=== PATIENT | female | born 1975 | race Two or more races ===

== ENCOUNTER 2020-11-15 20:37 | Emergency (ER) | payer MEDICAID ==
[~2020-11-15] VITALS: Ht 160 cm; Wt 70.3 kg
[~2020-11-15 20:37] MED LIST: NKM; NORCO 5-325 TA1 EACH ORAL; PHENERGAN25 M1 ORAL
[2020-11-15 20:45] VITALS: BP 145/94
[2020-11-15] MEDS ORDERED: Lidocaine 2% Visc 15ml soln ORAL ONE (20:45)
[2020-11-15] MEDS ORDERED: Mylanta II UD 30ml ORAL ONE (20:45)
[2020-11-15] MEDS ORDERED: Dicyclomine HCl 10mg/5ml oral soln ORAL ONE (20:45)
--- NOTE | 2020-11-15 20:56 | Emergency Room Report ---
History of Present Illness General Chief Complaint: Abdominal Pain Present Illness HPI 45-year-old female with history of hypertension and gallstones here with right upper quadrant abdominal pain. Patient says that she gets abdominal pain on and off but it has become much worse over the past 4 days. It is constant, located in the right upper quadrant and epigastric region, does not otherwise radiate. Has felt nauseous during that time but has not vomited. No diarrhea. Pain is sharp in nature. Has only been taking omeprazole for the pain. Denies head ache, vision change, fevers, chills, chest pain, palpitation, shortness of breath, back pain, other abdominal pain, diarrhea, dysuria, hematuria. 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 (Flip Mccracken M.D.) Patient History Now: No (Flip Mccracken M.D.) Review of Systems All Other Systems: negative except mentioned in HPI (Flip Mccracken M.D.) Physical Exam Vital Signs Date Time Temp Pulse Resp B/P (MAP) Pulse Ox O2 Delivery O2 Flow Rate FiO2 11/15/20 20:45 98.6 84 18 145/94 (111) 100 Room Air Sp02 EP Interpretation: reviewed, normal General Appearance: no apparent distress, alert, non-toxic Head: normocephalic, atraumatic Eyes: bilateral eye normal inspection, bilateral eye PERRL ENT: hearing grossly normal, normal pharynx, no angioedema, normal voice Neck: full range of motion, supple/symm/no masses Respiratory: chest non-tender, lungs clear, normal breath sounds, speaking full sentences Cardiovascular #1: regular rate, rhythm, no edema Cardiovascular #2: 2+ carotid (R), 2+ carotid (L), 2+ radial (R), 2+ radial (L), 2+ dorsalis pedis (R), 2+ dorsalis pedis (L) Gastrointestinal: normal bowel sounds, soft, non-distended, no guarding, no rebound, other - Positive Bingham sign. Right upper quadrant tenderness on palpation. No distention or rebound or guarding Rectal: deferred Genitourinary: normal inspection, no CVA tenderness Musculoskeletal: back normal, normal range of motion, gait/station normal, non- tender Neurologic: alert, motor strength/tone normal, oriented x3, sensory intact, responsive, speech normal Psychiatric: judgement/insight normal, memory normal, mood/affect normal, no suicidal/homicidal ideation Lymphatic: no adenopathy (Flip Mccracken M.D.) Medical Decision Making Diagnostic Impression: Primary Impression: Abdominal pain Qualified Codes: R10.11 - Right upper quadrant pain Additional Impression: Anemia Qualified Codes: D64.9 - Anemia, unspecified ER Course See above note. Patient is improved after treatment. Ultrasound results: see below. Patient reports pain now 5/10. Abdomen soft. No guarding. Discussed results with patient and treatment plan. Patient stable for outpatient observation and treatment. (Aniket Lombardo MD) CT/MRI/US Diagnostic Results CT/MRI/US Diagnostic Results : Imaging Test Ordered: ultrasound Impression Technically limited study secondary to obscuring overlying bowel gas. And seen on the CT, the gallbladder is filled with shadowing stones. The gallbladder wall is not well visualized. No definite pericholecystic free fluid. Sonographic Bingham's sign reported as negative. Normal caliber common bile duct. (Aniket Lombardo MD) Last Vital Signs Date Time Temp Pulse Resp B/P (MAP) Pulse Ox O2 Delivery O2 Flow Rate FiO2 11/15/20 20:45 98.6 84 18 145/94 (111) 100 Room Air (Flip Mccracken M.D.) Last Vital Signs Date Time Temp Pulse Resp B/P (MAP) Pulse Ox O2 Delivery O2 Flow Rate FiO2 11/15/20 22:27 Room Air 11/15/20 20:45 98.6 84 18 145/94 (111) 100 Status: improved (Aniket Lombardo MD) Disposition: HOME, SELF-CARE Condition: Improved Scripts Hydrocodone/Acetaminophen 5-325* (HYDROCODONE/ACETAMINOPHEN 5-325*) 1 Each Tablet 1 TAB ORAL Q6H PRN for For Pain, #10 TAB 0 Refills Prov: Aniket Lombardo MD 11/15/20 Omeprazole (OMEPRAZOLE) 20 Mg Capsule.dr 20 MG ORAL DAILY for Gerd, #30 CAP Prov: Aniket Lombardo MD 11/15/20 Referrals: NOT CHOSEN IPA/,REFERRING (PCP) Flip Mccracken M.D. Nov 15, 2020 20:56 Aniket Lombardo MD Nov 15, 2020 21:42
[2020-11-15] MEDS ORDERED: Ketorolac 30mg Inj IV ONE (21:00)
[2020-11-15 21:14] LABS: APPEARANCE,URINE SLIGHTLY CLOUDY; BILIRUBIN, URINE NEGATIVE (NEGATIVE); COLOR,URINE PALE YELLOW; GLUCOSE, URINE (UA) NEGATIVE (NEGATIVE); KETONES,URINE NEGATIVE (NEGATIVE); LEUKOCYTE ESTERASE ,URINE 1+ (NEGATIVE); NITRITE,URINE NEGATIVE (NEGATIVE); PH,URINE 5 (4.5-8.0); PROTEIN,URINE 1+ (NEGATIVE); UROBILINOGEN,URINE NORMAL MG/DL (0.0-1.0)
[2020-11-15 21:21] LABS: ANION GAP 10 mmol/L (5-15); BLOOD UREA NITROGEN 20 mg/dL (7-18); CALCIUM 8.8 MG/DL (8.5-10.1); CARBON DIOXIDE 28 MMOL/L (21-32); CHLORIDE 103 MMOL/L (98-107); CREATININE 0.9 MG/DL (0.55-1.30); POTASSIUM 3.6 MMOL/L (3.5-5.1); SODIUM 140 MMOL/L (136-145)
[2020-11-15 21:22] LABS: BASOPHILS % (AUTO) 1.3 % (0.0-2.0); EOSINOPHILS % (AUTO) 3.8 % (0.0-3.0); HEMATOCRIT 29.3 % (37.0-47.0); LYMPHOCYTES % (AUTO) 39.3 % (20.0-45.0); MEAN CORPUSCULAR VOLUME 77 FL (80-99); MONOCYTES % (AUTO) 9.1 % (1.0-10.0); NEUTROPHILS % (AUTO) 46.7 % (45.0-75.0); PLATELET COUNT 313 K/UL (150-450); RED BLOOD COUNT 3.82 M/UL (4.20-5.40); RED CELL DISTRIBUTION WIDTH 16.2 % (11.6-14.8); WHITE BLOOD COUNT 7.2 K/UL (4.8-10.8)
[2020-11-15 21:25] LABS: ALANINE AMINOTRANSFERASE 32 U/L (12-78); ALBUMIN 4.2 G/DL (3.4-5.0); ALKALINE PHOSPHATASE 116 U/L (46-116); ASPARTATE AMINO TRANSFERASE 41 U/L (15-37); BILIRUBIN,TOTAL 0.3 MG/DL (0.2-1.0)
--- NOTE | 2020-11-15 22:05 | Diagnostic Imaging Report ---
EXAM: US Abdomen Limited, Right Upper Quadrant CLINICAL HISTORY: ABD PAIN TECHNIQUE: Real-time ultrasound of the right upper quadrant with image documentation. COMPARISON: CT abdomen and pelvis 05/01/2018. FINDINGS: Technically limited study secondary to obscuring overlying bowel gas. Liver: Unremarkable. No discrete mass. No intrahepatic bile duct dilation. Patent main portal vein with hepatopedal flow. The liver measures 15 cm. Gallbladder: Gallbladder filled with shadowing gallstones which limits evaluation of the lumen (berry images). No definite gallbladder wall thickening but the gallbladder wall is not well visualized. No definite pericholecystic free fluid. Sonographic Bingham's sign reported as negative. Common bile duct: The extra hepatic bile duct is normal in caliber measuring 6 mm. IMPRESSION: Technically limited study secondary to obscuring overlying bowel gas. And seen on the CT, the gallbladder is filled with shadowing stones. The gallbladder wall is not well visualized. No definite pericholecystic free fluid. Sonographic Bingham's sign reported as negative. Normal caliber common bile duct.
[2020-11-15] MEDS ORDERED: OMEPRAZOLE20 M2 ORAL (22:17)
[2020-11-15] MEDS ORDERED: HYDROCODON-ACE1 EA15 ORAL (22:17)
== END 2020-11-15 22:27 | disposition home or self-care (01) ==
LOC: EMR 20:49
DX: R10.11 Right upper quadrant pain (principal); D64.9 Anemia, unspecified
CPT/HCPCS: 36415; 76705; 80053; 81003; 81025; 83690; 85025; 96361; 96374; 96375; J1885; J2405; J7030; S0028; Z7502; 99284